=== PATIENT | male | born 1945 | race Caucasian/White ===

== ENCOUNTER → 2023-09-05 | Outpatient (CLI) | payer MEDICARE ==
[2023-09-05 10:50] LABS: CREATININE 0.8 mg/dL (0.5-1.5)
== END | disposition home or self-care (01) ==
LOC: LAB 10:22
PROVIDERS: ATTEND Radiology Radiation Oncology
DX: C63.1 Malignant neoplasm of spermatic cord (principal)
CPT/HCPCS: 36415; 82565; 84520

== ENCOUNTER → 2023-09-28 | Outpatient (CLI) | payer MEDICARE, OTHER ==
[~2023-09-28] MED LIST: GADOTERATE MEGLUMINE 10 MMOL/20 ML VIAL IV ONE; IOHEXOL-350 75 ML VIAL IV ONE
== END | disposition home or self-care (01) ==
LOC: CANPRECLI → RAH 08:35
PROVIDERS: ATTEND Radiology Radiation Oncology
DX: R91.1 Solitary pulmonary nodule (principal); C63.1 Malignant neoplasm of spermatic cord; K44.9 Diaphragmatic hernia without obstruction or gangrene
CPT/HCPCS: 72197; 71260; Q9967; A9575

== ENCOUNTER → 2024-08-31 | Outpatient (CLI) | payer MEDICARE ==
[2024-08-31 14:38] LABS: CREATININE 0.8 mg/dL (0.5-1.3)
== END | disposition home or self-care (01) ==
LOC: RAH 14:04
PROVIDERS: ATTEND Radiology Radiation Oncology
DX: C63.1 Malignant neoplasm of spermatic cord (principal)
CPT/HCPCS: 36415; 82565; 84520

== ENCOUNTER → 2024-09-11 | Outpatient (CLI) | payer MEDICARE ==
--- NOTE | 2024-09-11 14:47 | HMCIMG ---
US SCROTUM & CONTENTS HISTORY: Malignant neoplasm of spermatic cord COMPARISON: None TECHNIQUE: Duplex scrotal ultrasound study was performed. FINDINGS: The right testes has been removed The left testes measures 4.2 x 2.2 x 3.4 cm. No evidence of intratesticular mass is seen. Normal flow is seen of left testes and left epididymis. There are left epididymal cysts with the largest measuring 2.2 cm. There is minimal to mild left hydrocele with debris. IMPRESSION: 1. Right testes. Mild left hydrocele. Left epididymal cysts.
== END | disposition home or self-care (01) ==
LOC: RAH 12:55
PROVIDERS: ATTEND Urology
DX: C63.1 Malignant neoplasm of spermatic cord (principal); N50.3 Cyst of epididymis; N43.3 Hydrocele, unspecified
CPT/HCPCS: 76870

== ENCOUNTER → 2024-09-17 | Outpatient (CLI) | payer MEDICARE ==
[~2024-09-17] MED LIST changes: -IOHEXOL-350 75 ML VIAL IV ONE
--- NOTE | 2024-09-17 12:08 | HMCIMG ---
CT CHEST W/O CONTRAST REASON: Malignant neoplasm of unspecified spermatic cord COMPARISON: None. TECHNIQUE: Multiple sequential axial images of the chest were obtained from the thoracic inlet through the upper pole of the kidneys without intravenous contrast administration. FINDINGS: Lungs are clear. There are no focal masses or infiltrates. There are no pulmonary nodules. 5 mm nodule in the base of the right upper lobe seen on previous exam is not identified on the current study. There is normal appearing interstitial pattern. Heart size is normal with no vascular congestion. There is no hilar or mediastinal lymphadenopathy. There is a small hiatal hernia, unchanged. There is at least one stone present within a partially visualized gallbladder. IMPRESSION: 1. Normal-appearing parenchyma, no pulmonary nodule identified on the current exam. 2. Small to moderate hiatal hernia. 3. Cholelithiasis without CT evidence of acute cholecystitis. CT was performed with one or more following dose reduction techniques: automated exposure control, adjustment of the mA and kv according to patient's size, or use of a iterative reconstruction technique.
--- NOTE | 2024-09-17 12:22 | HMCIMG ---
MR PELVIS W/WO CON REASON: MALIGNANT NEOPLASM UNSPECIFIED SPERMATIC CORD COMPARISON: None TECHNIQUE: Routine imaging protocol was performed in sagittal, axial and coronal plane with T1, proton density, T2 and gradient recalled sequences. Images are also obtained pre and post gadolinium contrast infusion, 20 cc Clariscan IV. FINDINGS: Left testicle appears normal. Right testicle is absent. There are several cysts in the scrotal sac which appear to be epididymal head cysts. This appears unchanged compared to ultrasound from 09/11/2024. Left spermatic cord is visible. Right spermatic cord is absent. There is no evidence of mass in the perineum or elsewhere. Postcontrast images show normal enhancement with no focal masses. There is no evidence of recurrent or residual tumor. Urinary bladder appears mildly thick-walled. The prostate does not appear enlarged. There are some cystic changes in the right seminal vesicle. There is no evidence of solid mass. IMPRESSION: 1. Absent right testicle and spermatic cord, no MR evidence of residual or in recurrent neoplasm.
== END | disposition home or self-care (01) ==
LOC: RAH 07:45
PROVIDERS: ATTEND Radiology Radiation Oncology
DX: C63.1 Malignant neoplasm of spermatic cord (principal); K44.9 Diaphragmatic hernia without obstruction or gangrene
CPT/HCPCS: 72197; 71250; A9575